=== PATIENT | female | born 1940 | race Two or more races ===

== ENCOUNTER 2024-06-16 09:44 | Outpatient (CLI) | payer OTHER | END 2024-06-16 10:10 | disposition home or self-care (01) | LOC: TOM 09:44 | DX: R19.5 Other fecal abnormalities (principal); C18.9 Malignant neoplasm of colon, unspecified; K59.00 Constipation, unspecified; K57.92 Diverticulitis of intestine, part unspecified, without perforation or abscess without bleeding ==

== ENCOUNTER 2025-01-26 09:34 | Day surgery (SDC) | payer OTHER ==
[2025-01-26] MEDS ORDERED: NALOXONE HCL 0.4 MG/ML AMPUL IV STA (12:57)
[2025-01-26] MEDS ORDERED: FLUMAZENIL 0.5 MG/5 ML ML IV STA (12:57)
[2025-01-26] MEDS ORDERED: fentaNYL CITRATE 50 MCG/ML AMPUL IV PUSH ONE (13:00)
[2025-01-26] MEDS ORDERED: DIPHENHYDRAMINE HCL 50 MG/ML VIAL 1ML IV ONE (13:00)
[2025-01-26] MEDS ORDERED: MIDAZOLAM HCL 2 MG/2 ML VIAL IV ONE (13:00)
== END 2025-01-26 15:00 | disposition home or self-care (01) ==
LOC: AMB-ENDOS 09:34
PROVIDERS: ATTEND Surgery
DX: K64.4 Residual hemorrhoidal skin tags (principal); K64.8 Other hemorrhoids; K62.5 Hemorrhage of anus and rectum; K57.30 Diverticulosis of large intestine without perforation or abscess without bleeding; K59.09 Other constipation

== ENCOUNTER 2025-05-27 10:38 | Emergency (ER) | payer OTHER ==
[~2025-05-27] VITALS: Ht 154.9 cm; Wt 45.4 kg
[2025-05-27] MEDS ORDERED: ADULT LOW DOSE81 M1 (11:35)
[2025-05-27] MEDS ORDERED: SEROQUEL50 MG (11:36)
[2025-05-27] MEDS ORDERED: PROTONIX20 MG (11:36)
[2025-05-27] MEDS ORDERED: TOPROL XL25 M1 (11:36)
[2025-05-27] MEDS ORDERED: PLAVIX75 MG (11:36)
[2025-05-27] MEDS ORDERED: CRESTOR40 MG (11:37)
[2025-05-27] MEDS ORDERED: ARICEPT10 MG (11:37)
[2025-05-27] MEDS ORDERED: D3-501250 MCG (11:38)
[2025-05-27] MEDS ORDERED: PANTOPRAZOLE SODIUM 40 MG/VIAL VIAL IV ONE (12:45)
[2025-05-27] MEDS ORDERED: 0.9 % SODIUM CHLORIDE 1,000 ML IV ONE (12:45)
[2025-05-27 13:16] LABS: BASO % 0.2 % (0.1-1.2); EOS # 0.02 (0.04-0.54); EOS % 0.2 % (0.7-7.0); LYMPH # 1.38 (1.18-3.74); LYMPH % 14.9 % (19.3-53.1); MEAN PLATELET VOLUME 9.10 fl (9.4-12.4); MONO # 0.89 (0.24-0.82); MONO % 9.6 % (4.7-12.5); NEUT # 6.93 (1.56-6.13); NEUT % 74.9 % (34.0-71.1); RED CELL DISTRIBUTION WIDTH 14.2 % (11.6-14.4)
[2025-05-27 13:39] LABS: URINE APPEARANCE Clear; URINE BILIRRUBIN Negative (NEGATIVE); URINE BLOOD Negative; URINE COLOR Yellow; URINE GLUCOSE Negative (NEGATIVE); URINE KETONE Trace (NEGATIVE); URINE LEUKOCYTE Negative; URINE NITRATE Negative; URINE PROTEIN Trace (NEGATIVE); URINE UROBILINOGEN 0.2 E.U./dl
[2025-05-27 13:43] LABS: URINE BACTERIA 56.3 uL (0.0-1933); URINE EPITHELIAL CELLS 6.1 uL (0.0-38.8); URINE RBC 9.6 uL (0.0-20.8); URINE WBC 4.1 uL (0.0-23.2)
[2025-05-27 13:43] LABS: INR 0.98
[2025-05-27 13:47] LABS: ALT/SGPT 22.0 U/L (12-78); AST/SGOT 23.0 U/L (15-37); BILIRUBIN TOTAL 0.46 mg/dL (0.3-1.2); BUN CREA RATIO 23.0 (7.0-25.0); CREATININE SERUM 0.65 mg/dL (0.55-1.02); GFR 86.63; GLOBULINA 3.3 G/DL (2.4-3.5); GLUCOSE FASTING 98.0 mg/dL (65-100); OSMOLALITY SERUM 289.0 MOSM/KG (275-295)
[2025-05-27 13:51] LABS: URINE CAST 0.29 uL (0.0-1.40)
== END 2025-05-27 21:35 | disposition home or self-care (01) ==
LOC: ER 10:38
PROVIDERS: General Practice
DX: K62.5 Hemorrhage of anus and rectum (principal); I10 Essential (primary) hypertension
CPT/HCPCS: 36415; 74177; 96365; 96366; 99284; J3490; J7030; Q9965